=== PATIENT | female | born 1975 | race Caucasian/White ===

== ENCOUNTER 2022-07-13 08:09 | Emergency (ER) | payer OTHER, BC ==
[~2022-07-13] VITALS: Ht 167.6 cm; Wt 78.0 kg
[2022-07-13] MEDS ORDERED: EFFEXOR XR150 MG PO (08:28)
[2022-07-13] MEDS ORDERED: HYDROCODON-ACE1 EA10 PO (09:06)
[2022-07-13] MEDS ORDERED: ONDANSETRON ODT4 MG PO (09:06)
[2022-07-13] MEDS ORDERED: CRUTCHES XX (09:10)
== END 2022-07-13 10:06 | disposition home or self-care (01) ==
LOC: ED 08:09
DX: S82.831A Other fracture of upper and lower end of right fibula, initial encounter for closed fracture (principal); W18.30XA Fall on same level, unspecified, initial encounter
CPT/HCPCS: 29505; 73590; 73610; 99283-25; A9270